=== PATIENT | female | born 1985 | race Caucasian/White ===

== ENCOUNTER 2024-04-01 18:03 | Emergency (ER) | payer MEDICAID, SELFPAY ==
--- NOTE | ~2024-04-01 | CT_ITS ---
EXAMINATION: CT cervical spine wo con DATE: 04/01/2024 20:36 INDICATION: neck pain TECHNIQUE: Computed tomography (CT) of the cervical spine was performed without intravenous contrast. Automated exposure control and iterative reconstruction technique were employed. The dose-length pro duct was 578.75 mGy-cm. COMPARISON: None. FINDINGS: Vertebral Body Alignment: Intact. Craniocervical and atlantoaxial alignment: Mild degenerative change. Alignment intact. Osseous structures/fracture: No evidence of a lytic or blastic process in the visualized spine. No e vidence of acute fracture. Cervical soft tissues: The paraspinal soft tissues planes are maintained. Degenerative changes: Mild degenerative disc changes. No severe central canal or neural foraminal catarina rowing. IMPRESSION: No acute fracture or traumatic malalignment in the cervical spine. Reviewed, dictated and finalized at location K.
--- NOTE | ~2024-04-01 | CT_ITS ---
EXAMINATION: CT brain wo con DATE: 04/01/2024 20:36 INDICATION: headache . TECHNIQUE: Computed tomography (CT) of the head was performed without intravenous contrast. The mA wa s adjusted according to patient size. Iterative reconstruction technique was employed. The dose-lengt h product was 681.00 mGy-cm. COMPARISON: None. FINDINGS: No acute intracranial hemorrhage or extra-axial fluid collection. No hydrocephalus, mass, or herniation. No acute ischemic infarct. Unremarkable dural venous sinus attenuation. No acute osseous abnormality. The aerated spaces are clear. IMPRESSION: No acute intracranial process. Reviewed, dictated and finalized at location K.
[2024-04-01 18:26] VITALS: BP 138/79; PULSE 88; RESP 17; TEMP 36.5; O2SAT 100
--- NOTE | 2024-04-01 20:22 | ED.NECK ---
HPI - Neck Pain/Injury General Chief Complaint: Neck Pain/Injury Stated Complaint: myalgias Time Seen by Provider: 04/01/24 20:03 Source: patient Mode of arrival: ambulatory Limitations: no limitations History of Present Illness HPI Narrative: This is a 38-year-old female that presents to the emergency department for neck pain. Reports she has been having trouble with arthralgias for quite some time. Reports she was diagnosed with rheumatoid arthritis at 1 point. She recently moved to this area and has not established with any providers here. Reports since yesterday she has been having some worsening neck pain. She has not taken anything for pain. No recent trauma. Reports this is also causing her to have a headache. Denies vision changes, vomiting, numbness, weakness. Related Data Allergies Allergy/AdvReac Type Severity Reaction Status Date / Time Iodinated Contrast Media AdvReac Hives Verified 04/01/24 18:28 Review of Systems Review of Systems: CONSTITUTIONAL: Denies fever EYES: Denies visual changes GASTROINTESTINAL: Denies vomiting MUSCULOSKELETAL: Reports joint pain, and myalgia. NEUROLOGIC: Denies headache. Denies numbness, or weakness. PSYCHIATRIC: Denies anxiety or depression. All systems reviewed & are unremarkable except as noted in HPI and below PMFSH Past Medical History Medical History (Updated 04/01/24 @ 21:31 by Negra Flynn PA-C) History of rheumatoid arthritis Social History Social History (Updated 04/01/24 @ 21:28 by Negra Flynn PA-C) Substance use: current Substance use type: marijuana Exam Narrative: GENERAL: Well-appearing, well-nourished, and in no acute distress. HEAD: Normocephalic, atraumatic. EYES: PERRLA and EOMI. ENT: Nares clear, no rhinorrhea or epistaxis. Mucous membranes moist. Oropharynx without tonsillar hypertrophy exudate or other lesions. Bilateral TMs pearly bridges non-bulging NECK: Supple. No adenopathy or masses. Tender to palpation of trapezius musculature bilaterally. Normal ROM CHEST: Clear to auscultation. No respiratory distress. No wheezes rales or rhonchi HEART: Regular rate and rhythm. No murmur heard. Normal peripheral pulses. EXTREMITIES: Normal range of motion. No edema. Strength equal in bilateral upper extremities (5/5) SKIN: Warm, dry, no rash. NEURO: No focal deficits. Alert and oriented x3. Cranial nerves 2-12 grossly intact PSYCH: Normal mood and affect Course Vital Signs Vital signs: Vital Signs Temperature 97.7 F 04/01/24 18:26 Pulse Rate 88 04/01/24 18:26 Respiratory Rate 17 04/01/24 18:26 Blood Pressure 138/79 04/01/24 18:26 Pulse Oximetry 100 04/01/24 18:26 Oxygen Delivery Room Air 04/01/24 18:26 Temperature 97.7 F 04/01/24 18:26 Pulse Rate 73 04/01/24 20:46 Respiratory Rate 16 04/01/24 20:46 Blood Pressure 135/73 04/01/24 20:46 Pulse Oximetry 100 04/01/24 20:46 Oxygen Delivery Room Air 04/01/24 18:26 MDM - Neck Pain/Injury MDM Narrative Medical decision making narrative: Patient presents to the emergency department for neck pain ongoing since yesterday. Also reporting a headache. No recent trauma. She is afebrile and nontoxic appearing. Her vitals are stable. She is neurologically intact. CT brain and cervical spine without acute findings. Patient was updated on her workup. Instructed to take [id number] pain medication as needed. Will be prescribed muscle relaxers needed for pain. She will be given primary provider for follow-up. She was given warnings to return to the ER Differential Diagnosis Differential diagnosis: Likely disc disorder of cervical region, cervical radiculopathy, cervical spondylosis, strain of neck muscle and other (tension headache, migraine) Imaging Data Radiologist's impression: ITS Impressions Head CT 04/01/24 20:37 IMPRESSION: No acute intracranial process. Cervical Spine CT 04/01/24 20:40 IMPRESSION:
[2024-04-01] MEDS: ACETAMINOPHEN 500 MG TABLET 1000 MG PO (20:45)
[2024-04-01 20:46] VITALS: BP 135/73; PULSE 73; RESP 16; O2SAT 100
[2024-04-01] MEDS: ONDANSETRON HCL ODT 4 MG TABLET PO (21:53)
[2024-04-01] MEDS: KETOROLAC 30 MG/ML VIAL (*BKC) IM (21:54)
[2024-04-01 21:55] VITALS: RESP 20
== END 2024-04-01 21:55 | disposition home or self-care (01) ==
PROVIDERS: Emergency Provider Physician Assistant
DX: M54.2 Cervicalgia (principal); M06.9 Rheumatoid arthritis, unspecified
CPT/HCPCS: 70450; 72125; 96372; 99284; A9270; J1885

== ENCOUNTER 2024-04-18 23:27 | Emergency (ER) | payer BC, SELFPAY ==
[2024-04-18 23:38] VITALS: BP 124/81; PULSE 83; RESP 15; TEMP 36.6; O2SAT 98
[2024-04-19 00:30] LABS: Basophils Absolute Auto 0.1 K/mm3 (0.0-0.1); Basophils Percent Auto 0.5 % (0.2-1.2); Eosinophils Absolute Auto 0.2 K/mm3 (0-0.3); Eosinophils Percent Auto 2.4 % (0-4.4); Hematocrit 39.9 % (37.0-47.0); Hemoglobin 12.6 g/dL (12.0-15.0); Immature Granulocyte Absolute 0.02 K/mm3 (0.00-0.031); Immature Granulocyte Percent A 0.2 % (0-0.5); Lymphocytes Absolute Auto 2.42 K/mm3 (0.9-3.2); Lymphocytes Percent Auto 24.1 % (18.3-44.2); Mean Corpuscular HGB Conc 31.6 g/dl (32-36); Mean Corpuscular Hemoglobin 26.9 pg (26-34); Mean Corpuscular Volume 85.3 fl (80-100); Mean Platelet Volume 9.9 fl (7.4-10.4); Monocytes Absolute Auto 0.7 K/mm3 (0.1-0.6); Monocytes Percent Auto 6.5 % (2.6-8.5); Neutrophils Absolute Auto 6.7 K/mm3 (1.3-6.7); Neutrophils Percent Auto 66.3 % (45.5-73.1); Platelet Count Result 299 k/mm3 (150-375); Red Blood Count 4.68 M/mm3 (4.2-5.4); Red Cell Distribution Width 15.7 % (11.5-14.5); White Blood Count 10.1 K/mm3 (4.5-10.0)
[2024-04-19] MEDS: SODIUM CHLORIDE 0.9% IV 1,000 ML 999 ML IV CONT (00:35)
[2024-04-19] MEDS: ONDANSETRON INJ 4 MG/2 ML VIAL IV PUSH (00:36)
[2024-04-19 00:41] LABS: SPREG INTERNAL CONTROL Positive; Serum Qual hCG Negative
[2024-04-19 00:47] LABS: Alanine Aminotransferase 30 U/L (6-35); Albumin Level 3.8 g/dL (3.5-5.1); Alkaline Phosphatase 66 U/L (38-126); Anion Gap 5 mmol/L (4-12); Aspartate Amino Transferase 31 U/L (14-36); Bilirubin,Total 0.6 mg/dL (0.2-1.3); Blood Urea Nitrogen 18 mg/dL (7-17); Calcium 8.6 mg/dL (8.4-10.2); Carbon Dioxide 24 mmol/L (22-30); Chloride 109 mmol/L (98-107); Estimated CRCL calculation 88 ml/min; Estimated Glomerular Filt Rate 56; Glucose 101 mg/dL (65-110); Potassium 4.1 mmol/L (3.4-5.0); Sodium 138 mmol/L (137-145)
--- NOTE | 2024-04-19 01:05 | ED.FEMALEGU ---
HPI - Female Genitourinary General Chief complaint: Vaginal Bleeding Stated complaint: vaginal bleeding Time Seen by Provider: 04/18/24 23:41 History of Present Illness HPI Narrative: Patient is a 38-year-old female who presents to the emergency department this evening complaining of passing 1 small blood clot. Patient states that she has also been having some lightheadedness and nausea and vomiting and diarrhea. Patient states the symptoms started today. She also states that the blood clot that she passed was right after she had sexual intercourse with her partner. Denies any heavy vaginal bleeding or blood clots. Patient does have an IUD and states that despite the 82 she has been having regular periods for the past year. She denies any abdominal pain at this time, any chest pain or shortness of breath, any fevers or chills. No additional symptoms or concerns at this time. Related Data Allergies Allergy/AdvReac Type Severity Reaction Status Date / Time Iodinated Contrast Media AdvReac Hives Verified 04/01/24 18:28 Review of Systems Review of Systems: All systems are reviewed and are negative unless stated otherwise in the HPI. [facility] Past Medical History Medical History History of rheumatoid arthritis Social History Social History Substance use: current Substance use type: marijuana Exam Narrative: General: Alert, awake, afebrile, in no acute distress, obese. HEENT: PERRL, no rhinorrhea, no post nasal drip, oropharynx clear. Cardiovascular: Regular rate and rhythm, no murmurs, rubs or gallops, no peripheral edema. Respiratory: Clear to auscultation bilaterally, no tachypnea, no wheezing, no rhonchi, no rubs, no respiratory distress. Abdomen: Soft, nontender, nondistended, no rebound, no guarding, no peritoneal signs. Musculoskeletal: No joint swelling or deformity, normal muscle tone. Skin: No rashes or petechia, no signs of infection. Neurological: Alert and oriented to person, place, and time. Follows all commands. No focal deficits, speech is clear and fluent. Course Vital Signs Vital signs: Vital Signs Temperature 98 F 04/18/24 23:38 Pulse Rate 83 04/18/24 23:38 Respiratory Rate 15 04/18/24 23:38 Blood Pressure 124/81 04/18/24 23:38 Pulse Oximetry 98 04/18/24 23:38 Oxygen Delivery Room Air 04/18/24 23:38 Temperature 98 F 04/18/24 23:38 Pulse Rate 81 04/19/24 01:24 Respiratory Rate 16 04/19/24 01:24 Blood Pressure 124/65 04/19/24 01:24 Pulse Oximetry 100 04/19/24 01:24 Oxygen Delivery Room Air 04/18/24 23:38 MDM - Female Genitourinary MDM Narrative Medical decision making narrative: The patient was evaluated by myself in the emergency department. History is obtained from patient who is an independent historian and physical exam was performed. External medical records were reviewed at this time. IV was established and pertinent tests were ordered. Patient was administered a 1 L IV fluid bolus with normal saline and 4 mg of IV Zofran for nausea. Laboratory results obtained revealing no acute process. Differential diagnosis considerations include acute viral syndrome, gastroenteritis, and blood loss anemia although unlikely given patient's normal hemoglobin of 12.6. Comorbidities impacting this visit include none. I have evaluated and discussed social determinants of health with the patient that could potentially impact subsequent diagnosis and treatment plans. On repeat assessment of the patient, reevaluation revealed that the patient is doing well and is in no acute distress. Patient symptoms have improved since she arrived to our emergency department. Repeat vital signs were all reviewed and noted to be stable. Differential diagnosis and treatment plan were discussed with the patient at bedside. Patient agrees with discussion a
[2024-04-19 01:24] VITALS: BP 124/65; PULSE 81; RESP 16; O2SAT 100
== END 2024-04-19 01:29 | disposition home or self-care (01) ==
PROVIDERS: Emergency Provider Emergency Medicine
DX: K52.9 Noninfective gastroenteritis and colitis, unspecified (principal)
CPT/HCPCS: 36415; 80053; 84703; 85025; 86850; 86900; 86901; 96361; 96374; 99284; J2405; J7030